=== PATIENT | male | born 1990 | race Caucasian/White ===

== ENCOUNTER 2021-07-20 17:12 | Outpatient (RCR) | payer OTHER, SELFPAY | END 2021-07-28 23:59 | LOC: NS 17:12 | DX: Z71.3 Dietary counseling and surveillance (principal); R19.04 Left lower quadrant abdominal swelling, mass and lump; R10.9 Unspecified abdominal pain; I95.1 Orthostatic hypotension; G52.2 Disorders of vagus nerve | CPT/HCPCS: 97802 ==

== ENCOUNTER 2021-08-10 15:26 | Outpatient (RCR) | payer OTHER, SELFPAY | END 2021-08-27 23:59 | LOC: NS 15:26 | DX: Z71.3 Dietary counseling and surveillance (principal); R10.9 Unspecified abdominal pain; I95.1 Orthostatic hypotension; G52.2 Disorders of vagus nerve; R19.04 Left lower quadrant abdominal swelling, mass and lump | CPT/HCPCS: 97803 ==

== ENCOUNTER 2021-09-14 17:02 | Outpatient (RCR) | payer OTHER, SELFPAY | END 2021-09-27 23:59 | LOC: NS 17:02 | DX: Z71.3 Dietary counseling and surveillance (principal); R10.9 Unspecified abdominal pain; I95.1 Orthostatic hypotension; G52.2 Disorders of vagus nerve; R19.04 Left lower quadrant abdominal swelling, mass and lump | CPT/HCPCS: 97803 ==

== ENCOUNTER 2021-10-26 17:00 | Outpatient (RCR) | payer OTHER, SELFPAY | END 2021-10-27 23:59 | LOC: NS 17:00 | DX: Z71.3 Dietary counseling and surveillance (principal); R10.9 Unspecified abdominal pain; I95.1 Orthostatic hypotension; G52.2 Disorders of vagus nerve; R19.04 Left lower quadrant abdominal swelling, mass and lump | CPT/HCPCS: 97803 ==

== ENCOUNTER 2021-11-24 16:22 | Outpatient (RCR) | payer OTHER, SELFPAY | END 2021-11-27 23:59 | LOC: NS 16:22 | DX: Z71.3 Dietary counseling and surveillance (principal); R10.9 Unspecified abdominal pain; I95.1 Orthostatic hypotension; G52.2 Disorders of vagus nerve; R19.04 Left lower quadrant abdominal swelling, mass and lump | CPT/HCPCS: 97803 ==